=== PATIENT | male | born 1935 | race Caucasian/White ===

== ENCOUNTER 2018-03-22 07:13 | Inpatient (IN) | payer OTHER ==
[2018-03-22 08:14] LABS: ADD MAN DIFF? NO
[2018-03-22] MEDS: SOD CHLORIDE 0.9% 1,000 ML IV (08:15)
[2018-03-22] MEDS: ONDANSETRON 4 MG INJ IV ×2 (08:15→11:23)
[2018-03-22] MEDS: morphine 4 MG/ML VIAL IV (08:15)
[2018-03-22] MEDS: DIPHTH/TET/ACEL PERTUSS (ADULT) 0.5 ML VIAL IM* (08:16)
[2018-03-22 08:17] LABS: WHITE BLOOD COUNT 8.9 10^3/ul (4.8-10.8)
[2018-03-22 08:17] LABS: BASOPHILS % 0.2 % (0.0-2.0); EOSINOPHILS # 0.2 10^3/ul (0.0-0.5); EOSINOPHILS % 1.7 % (0.0-7.0); HEMOGLOBIN 11.7 g/dl (14.0-18.0); LYMPHOCYTES # 0.8 10^3/ul (0.8-2.9); LYMPHOCYTES % 8.4 % (15.0-51.0); MEAN CORPUSCULAR HEMOGLOBIN 31.6 pg (29.0-33.0); MEAN CORPUSCULAR HGB CONC 33.4 g/dl (32.0-37.0); MEAN CORPUSCULAR VOLUME 94.6 fl (82.0-101.0); MEAN PLATELET VOLUME 10.9 fl (7.4-10.4); MONOCYTE # 0.7 10^3/ul (0.3-0.9); MONOCYTES % 7.9 % (0.0-11.0); NEUTROPHIL # 7.2 10^3/ul (1.6-7.5); NEUTROPHILS % 81.1 % (39.0-77.0); PLATELET COUNT 220 10^3/UL (140-415); RED CELL DISTRIBUTION WIDTH 13.8 % (11.5-14.5)
[2018-03-22 08:35] LABS: INR 0.89; PROTIME 12.1 Sec (11.9-14.9); PT RATIO 0.9
[2018-03-22 08:36] LABS: PARTIAL THROMBOPLASTIN TIME 24.7 Sec (25.0-35.0)
[2018-03-22 08:56] LABS: ALBUMIN 3.7 g/dl (3.3-4.9); ALBUMIN/GLOBULIN RATIO 1.12; ALKALINE PHOSPHATASE 72 IU/L (42-121); ANION GAP 12 (8-16); ASPARTATE AMINO TRANSFERASE 13 IU/L (15-46); BILIRUBIN,INDIRECT 0.2 mg/dl (0-1.1); BILIRUBIN,TOTAL 0.2 mg/dl (0.2-1.3); BLOOD UREA NITROGEN 48 mg/dl (7-20); CALCIUM 8.6 mg/dl (8.4-10.2); CARBON DIOXIDE 23 mmol/L (21-31); CHLORIDE 108 mmol/L (97-110); CREATININE 2.85 mg/dl (0.61-1.24); GLUCOSE 114 mg/dl (70-220); POTASSIUM 4.3 mmol/L (3.5-5.1); SODIUM 139 mmol/L (135-144)
[2018-03-22 09:07] LABS: TROPONIN-I < 0.010 ng/ml (0.000-0.120)
[2018-03-22 09:09] LABS: ALANINE AMINOTRANSFERASE < 6 IU/L (13-69)
[2018-03-22] MEDS ORDERED: ONDANSETRON 4 MG INJ IV (10:30)
[2018-03-22] MEDS ORDERED: ACETAMINOPHEN 325 MG TAB PO (10:30)
[2018-03-22] MEDS: morphine 2 MG INJ IV (11:23)
[2018-03-22] MEDS: HYDROCODONE/APAP (5/325) TAB PO ×2 (13:17→21:25)
[2018-03-22] MEDS: FAMOTIDINE 20 MG TAB PO (21:25)
[2018-03-23] MEDS: HYDROCODONE/APAP (5/325) TAB PO ×2 (05:27→19:49)
[2018-03-23 07:25] LABS: ADD MAN DIFF? NO
[2018-03-23 07:39] LABS: WHITE BLOOD COUNT 9.2 10^3/ul (4.8-10.8)
[2018-03-23 07:39] LABS: ABNORMAL IP MESSAGE 1; BASOPHILS % 0.3 % (0.0-2.0); EOSINOPHILS # 0.2 10^3/ul (0.0-0.5); EOSINOPHILS % 2.1 % (0.0-7.0); HEMATOCRIT 33.3 % (42.0-52.0); HEMOGLOBIN 10.9 g/dl (14.0-18.0); LYMPHOCYTES # 0.6 10^3/ul (0.8-2.9); LYMPHOCYTES % 6.4 % (15.0-51.0); MEAN CORPUSCULAR HEMOGLOBIN 30.9 pg (29.0-33.0); MEAN CORPUSCULAR HGB CONC 32.7 g/dl (32.0-37.0); MEAN CORPUSCULAR VOLUME 94.3 fl (82.0-101.0); MEAN PLATELET VOLUME 11.2 fl (7.4-10.4); MONOCYTES % 11.1 % (0.0-11.0); NEUTROPHIL # 7.3 10^3/ul (1.6-7.5); NEUTROPHILS % 79.7 % (39.0-77.0); PLATELET COUNT 194 10^3/UL (140-415); POSITIVE DIFF @See below; RED BLOOD COUNT 3.53 10^6/ul (4.70-6.10); RED CELL DISTRIBUTION WIDTH 14.2 % (11.5-14.5)
[2018-03-23 08:08] LABS: ALANINE AMINOTRANSFERASE 20 IU/L (13-69); ALBUMIN 3.2 g/dl (3.3-4.9); ALBUMIN/GLOBULIN RATIO 1.14; ALKALINE PHOSPHATASE 63 IU/L (42-121); ANION GAP 10 (8-16); ASPARTATE AMINO TRANSFERASE 14 IU/L (15-46); BILIRUBIN,INDIRECT 0.5 mg/dl (0-1.1); BILIRUBIN,TOTAL 0.5 mg/dl (0.2-1.3); BLOOD UREA NITROGEN 37 mg/dl (7-20); CALCIUM 8.1 mg/dl (8.4-10.2); CARBON DIOXIDE 25 mmol/L (21-31); CHLORIDE 109 mmol/L (97-110); CREATININE 2.08 mg/dl (0.61-1.24); GLUCOSE 100 mg/dl (70-220); MAGNESIUM 2.1 mg/dl (1.7-2.5); PHOSPHORUS 3.3 mg/dl (2.5-4.9); POTASSIUM 4.3 mmol/L (3.5-5.1); SODIUM 140 mmol/L (135-144)
[2018-03-23 08:21] LABS: FREE THYROXINE INDEX (Calc) 1.98 ug/ml (0.65-3.89); T3 UPTAKE 40.5 % (23.5-40.5); T4 (THYROXINE) 4.9 ug/dl (5.5-11.0)
[2018-03-23] MEDS: TAMSULOSIN (SR) 0.4 MG CAP PO (08:41)
[2018-03-23] MEDS: FUROSEMIDE 20 MG TAB PO (08:41)
[2018-03-23] MEDS: HEPARIN 5,000 UNIT/0.5 ML VIAL SC ×2 (08:50→20:45)
[2018-03-23] MEDS: AMLODIPINE 5 MG TAB PO (12:00)
[2018-03-23] MEDS: morphine 2 MG INJ IV (15:06)
[2018-03-23] MEDS ORDERED: ALBUTEROL/IPRATROPIUM (NEB) 3 ML AMP HHN (17:00)
[2018-03-23] MEDS: FAMOTIDINE 20 MG TAB PO (20:35)
[2018-03-23] MEDS ORDERED: morphine LIQ (10 MG/5 ML) CUP PO (23:30)
[2018-03-24 07:19] LABS: ADD MAN DIFF? NO
[2018-03-24 07:20] LABS: BASOPHILS % 0.4 % (0.0-2.0); EOSINOPHILS # 0.2 10^3/ul (0.0-0.5); EOSINOPHILS % 2.8 % (0.0-7.0); HEMOGLOBIN 11.1 g/dl (14.0-18.0); IMMATURE GRANS #M 0.02 10^3/ul; IMMATURE GRANS % (M) 0.2 %; LYMPHOCYTES # 0.9 10^3/ul (0.8-2.9); LYMPHOCYTES % 10.4 % (15.0-51.0); MEAN CORPUSCULAR HEMOGLOBIN 30.8 pg (29.0-33.0); MEAN CORPUSCULAR HGB CONC 32.6 g/dl (32.0-37.0); MEAN CORPUSCULAR VOLUME 94.4 fl (82.0-101.0); MEAN PLATELET VOLUME 11.5 fl (7.4-10.4); MONOCYTES % 11.7 % (0.0-11.0); NEUTROPHIL # 6.3 10^3/ul (1.6-7.5); NEUTROPHILS % 74.5 % (39.0-77.0); PLATELET COUNT 189 10^3/UL (140-415); RED CELL DISTRIBUTION WIDTH 14.1 % (11.5-14.5)
[2018-03-24 07:20] LABS: WHITE BLOOD COUNT 8.5 10^3/ul (4.8-10.8)
[2018-03-24 07:35] LABS: HEMOGLOBIN A1C 5.9 % (0-5.9)
[2018-03-24 07:43] LABS: ANION GAP 10 (8-16); BLOOD UREA NITROGEN 35 mg/dl (7-20); CALCIUM 8.2 mg/dl (8.4-10.2); CARBON DIOXIDE 26 mmol/L (21-31); CHLORIDE 107 mmol/L (97-110); CREATININE 2.28 mg/dl (0.61-1.24); GLUCOSE 111 mg/dl (70-220); POTASSIUM 4.1 mmol/L (3.5-5.1); SODIUM 139 mmol/L (135-144)
[2018-03-24 07:47] LABS: CHOL/HDL RATIO 3.4 RATIO; CHOLESTEROL 151 mg/dl (100-200); HDL CHOLESTEROL 44 mg/dl (31-75); LDL CHOLESTEROL,CALCULATED 82 mg/dl; TRIGLYCERIDES 124 mg/dl (0-149)
[2018-03-24 07:47] LABS: PHOSPHORUS 3.4 mg/dl (2.5-4.9)
[2018-03-24] MEDS: TAMSULOSIN (SR) 0.4 MG CAP PO (08:23)
[2018-03-24] MEDS: AMLODIPINE 5 MG TAB PO (08:23)
[2018-03-24] MEDS: FUROSEMIDE 20 MG TAB PO (08:24)
[2018-03-24] MEDS: HEPARIN 5,000 UNIT/0.5 ML VIAL SC ×2 (08:25→22:54)
[2018-03-24] MEDS: HYDROCODONE/APAP (5/325) TAB PO ×3 (11:27→23:39)
[2018-03-24] MEDS: FAMOTIDINE 20 MG TAB PO (22:05)
[2018-03-25] MEDS: HYDROCODONE/APAP (5/325) TAB PO ×2 (05:39→15:56)
[2018-03-25] MEDS: TAMSULOSIN (SR) 0.4 MG CAP PO (08:32)
[2018-03-25] MEDS: AMLODIPINE 5 MG TAB PO (08:33)
[2018-03-25] MEDS: FUROSEMIDE 20 MG TAB PO (08:34)
[2018-03-25] MEDS: HEPARIN 5,000 UNIT/0.5 ML VIAL SC ×2 (08:39→20:41)
[2018-03-25] MEDS: FAMOTIDINE 20 MG TAB PO (20:37)
[2018-03-26] MEDS: HYDROCODONE/APAP (5/325) TAB PO ×3 (01:34→18:02)
[2018-03-26 06:13] LABS: ADD MAN DIFF? NO
[2018-03-26 06:24] LABS: BASOPHILS % 0.2 % (0.0-2.0); EOSINOPHILS # 0.3 10^3/ul (0.0-0.5); EOSINOPHILS % 3.8 % (0.0-7.0); HEMATOCRIT 32.8 % (42.0-52.0); IMMATURE GRANS #M 0.03 10^3/ul; IMMATURE GRANS % (M) 0.3 %; LYMPHOCYTES # 1.2 10^3/ul (0.8-2.9); LYMPHOCYTES % 13.8 % (15.0-51.0); MEAN CORPUSCULAR HEMOGLOBIN 31.6 pg (29.0-33.0); MEAN CORPUSCULAR HGB CONC 33.5 g/dl (32.0-37.0); MEAN CORPUSCULAR VOLUME 94.3 fl (82.0-101.0); MEAN PLATELET VOLUME 11.4 fl (7.4-10.4); MONOCYTE # 1.2 10^3/ul (0.3-0.9); MONOCYTES % 13.6 % (0.0-11.0); NEUTROPHIL # 5.9 10^3/ul (1.6-7.5); NEUTROPHILS % 68.3 % (39.0-77.0); PLATELET COUNT 216 10^3/UL (140-415); RED BLOOD COUNT 3.48 10^6/ul (4.70-6.10); RED CELL DISTRIBUTION WIDTH 13.8 % (11.5-14.5)
[2018-03-26 06:24] LABS: WHITE BLOOD COUNT 8.6 10^3/ul (4.8-10.8)
[2018-03-26 06:41] LABS: PHOSPHORUS 3.8 mg/dl (2.5-4.9)
[2018-03-26 06:43] LABS: ANION GAP 12 (8-16); BLOOD UREA NITROGEN 46 mg/dl (7-20); CALCIUM 7.8 mg/dl (8.4-10.2); CARBON DIOXIDE 30 mmol/L (21-31); CHLORIDE 101 mmol/L (97-110); CREATININE 2.52 mg/dl (0.61-1.24); GLUCOSE 118 mg/dl (70-220); POTASSIUM 3.7 mmol/L (3.5-5.1); SODIUM 139 mmol/L (135-144)
[2018-03-26] MEDS: TAMSULOSIN (SR) 0.4 MG CAP PO (08:47)
[2018-03-26] MEDS: AMLODIPINE 5 MG TAB PO (08:48)
[2018-03-26] MEDS: FUROSEMIDE 20 MG TAB PO (08:48)
[2018-03-26] MEDS: HEPARIN 5,000 UNIT/0.5 ML VIAL SC ×2 (08:52→20:39)
[2018-03-26] MEDS: FAMOTIDINE 20 MG TAB PO (20:33)
[2018-03-27] MEDS: HYDROCODONE/APAP (5/325) TAB PO ×3 (02:03→20:16)
[2018-03-27] MEDS: HEPARIN 5,000 UNIT/0.5 ML VIAL SC (08:11)
[2018-03-27] MEDS: AMLODIPINE 5 MG TAB PO (08:12)
[2018-03-27] MEDS: TAMSULOSIN (SR) 0.4 MG CAP PO (08:12)
[2018-03-27] MEDS: DOCUSATE SODIUM 100 MG CAP PO (08:12)
[2018-03-27] MEDS: FUROSEMIDE 20 MG TAB PO (08:12)
[2018-03-27] MEDS: BISACODYL (EC) 5 MG TAB PO (17:29)
[2018-03-27] MEDS: FAMOTIDINE 20 MG TAB PO (20:17)
[2018-03-28] MEDS: DEXTROSE 5%-0.45% NACL 1,000 ML IV ×2 (00:28→10:37)
[2018-03-28] MEDS ORDERED: ACETAMINOPHEN 1000 MG/100 ML IVPB (07:00)
[2018-03-28] MEDS: morphine 2 MG INJ IV (08:37)
[2018-03-28] MEDS: FUROSEMIDE 20 MG TAB PO (09:00)
[2018-03-28] MEDS: TAMSULOSIN (SR) 0.4 MG CAP PO (09:00)
[2018-03-28] MEDS: AMLODIPINE 5 MG TAB PO (09:00)
[2018-03-28] MEDS: SENNA TAB PO ×2 (11:00→21:10)
[2018-03-28] MEDS ORDERED: ONDANSETRON 4 MG INJ (13:18)
[2018-03-28] MEDS ORDERED: METOCLOPRAMIDE 10 MG INJ (13:18)
[2018-03-28] MEDS ORDERED: FENTAnyl 50 MCG/ML VIAL (13:18)
[2018-03-28] MEDS ORDERED: PROPOFOL 0 ML (13:18)
[2018-03-28] MEDS ORDERED: CEFAZOLIN 1 GM INJ (13:18)
[2018-03-28] MEDS ORDERED: MIDAZOLAM 1 MG/ML 2 ML INJ ×2 (13:18→13:45)
[2018-03-28] MEDS ORDERED: BUPIVACAINE 0.75%/DEXT (SPINAL) 2 ML INJ (13:19)
[2018-03-28] MEDS ORDERED: morphine SULFATE/PF (10 MG/10 ML) INJ (13:19)
[2018-03-28] MEDS ORDERED: ROPIVACAINE 0.5 % 30 ML VIAL (14:06)
[2018-03-28] MEDS ORDERED: EPHEDrine SULFATE 50 MG/5 ML SYG (14:13)
[2018-03-28] MEDS ORDERED: ETOMIDATE 20 MG INJ (14:14)
[2018-03-28] MEDS: POLYMYXIN/BACITRACIN 1L IRRIG IRR (14:52)
[2018-03-28] MEDS ORDERED: ONDANSETRON 4 MG INJ IV (16:00)
[2018-03-28] MEDS ORDERED: HYDROmorphONE 1 MG/5 ML IV SYRINGE IV ×3 (16:00)
[2018-03-28] MEDS ORDERED: NACL 0.9% 3 ML SYG IV (16:30)
[2018-03-28] MEDS: DOCUSATE SODIUM 100 MG CAP PO ×2 (18:43→21:11)
[2018-03-28] MEDS: CEFAZOLIN 1 GM/50 ML (PMX) 50 ML IVPB (18:43)
[2018-03-28] MEDS: MAGNESIUM HYDROXIDE 30ML CUP PO (18:43)
[2018-03-28] MEDS: SOD CHLORIDE 0.9% 1,000 ML IV (18:43)
[2018-03-28] MEDS: FAMOTIDINE 20 MG TAB PO (21:10)
[2018-03-28] MEDS: HYDROCODONE/APAP (5/325) TAB PO (21:11)
[2018-03-29] MEDS: CEFAZOLIN 1 GM/50 ML (PMX) 50 ML IVPB ×2 (00:51→09:41)
[2018-03-29] MEDS: morphine 4 MG/ML VIAL IV ×4 (01:07→16:35)
[2018-03-29] MEDS: SOD CHLORIDE 0.9% 1,000 ML IV ×2 (04:31→22:01)
[2018-03-29 06:52] LABS: ADD MAN DIFF? NO
[2018-03-29 07:07] LABS: WHITE BLOOD COUNT 10.6 10^3/ul (4.8-10.8)
[2018-03-29 07:07] LABS: BASOPHILS % 0.2 % (0.0-2.0); EOSINOPHILS % 0.1 % (0.0-7.0); HEMATOCRIT 31.7 % (42.0-52.0); HEMOGLOBIN 10.6 g/dl (14.0-18.0); LYMPHOCYTES # 0.7 10^3/ul (0.8-2.9); LYMPHOCYTES % 6.7 % (15.0-51.0); MEAN CORPUSCULAR HEMOGLOBIN 31.8 pg (29.0-33.0); MEAN CORPUSCULAR HGB CONC 33.4 g/dl (32.0-37.0); MEAN CORPUSCULAR VOLUME 95.2 fl (82.0-101.0); MEAN PLATELET VOLUME 10.9 fl (7.4-10.4); MONOCYTE # 1.2 10^3/ul (0.3-0.9); MONOCYTES % 11.5 % (0.0-11.0); NEUTROPHIL # 8.6 10^3/ul (1.6-7.5); NEUTROPHILS % 81.1 % (39.0-77.0); PLATELET COUNT 234 10^3/UL (140-415); RED BLOOD COUNT 3.33 10^6/ul (4.70-6.10); RED CELL DISTRIBUTION WIDTH 13.6 % (11.5-14.5)
[2018-03-29 07:41] LABS: ANION GAP 16 (8-16); BLOOD UREA NITROGEN 41 mg/dl (7-20); CALCIUM 7.8 mg/dl (8.4-10.2); CARBON DIOXIDE 26 mmol/L (21-31); CHLORIDE 102 mmol/L (97-110); CREATININE 2.11 mg/dl (0.61-1.24); GLUCOSE 115 mg/dl (70-220); POTASSIUM 4.7 mmol/L (3.5-5.1); SODIUM 139 mmol/L (135-144)
[2018-03-29] MEDS: SENNA TAB PO ×2 (09:41→21:52)
[2018-03-29] MEDS: DOCUSATE SODIUM 100 MG CAP PO ×2 (09:42→21:52)
[2018-03-29] MEDS: HYDROCODONE/APAP (5/325) TAB PO ×2 (09:42→16:35)
[2018-03-29] MEDS: AMLODIPINE 5 MG TAB PO (09:42)
[2018-03-29] MEDS: TAMSULOSIN (SR) 0.4 MG CAP PO ×2 (09:42→21:52)
[2018-03-29] MEDS: FUROSEMIDE 20 MG TAB PO (09:43)
[2018-03-29] MEDS: ENOXAPARIN 30 MG/0.3 ML SYG SC (10:48)
[2018-03-29] MEDS: FAMOTIDINE 20 MG TAB PO (21:52)
[2018-03-30] MEDS: SOD CHLORIDE 0.9% 1,000 ML IV ×2 (05:31→17:15)
[2018-03-30] MEDS: CLOPIDOGREL 75 MG TAB PO (08:33)
[2018-03-30] MEDS: CALCITRIOL 0.25 MCG CAP PO (08:33)
[2018-03-30] MEDS: SENNA TAB PO (08:34)
[2018-03-30] MEDS: DOCUSATE SODIUM 100 MG CAP PO (08:34)
[2018-03-30] MEDS: FUROSEMIDE 20 MG TAB PO (08:34)
[2018-03-30] MEDS: ENOXAPARIN 30 MG/0.3 ML SYG SC (08:40)
[2018-03-30] MEDS: HYDROCODONE/APAP (5/325) TAB PO (09:28)
== END 2018-03-30 18:20 | DRG 481 ==
LOC: E/R 07:13 → TEL 10:02
PROC: 0QS706Z Reposition Left Upper Femur with Intramedullary Internal Fixation Device, Open Approach (ICD-10-PCS; principal; 2018-03-28 13:00)
DX: S72.142A Displaced intertrochanteric fracture of left femur, initial encounter for closed fracture (principal); I13.0 Hypertensive heart and chronic kidney disease with heart failure and stage 1 through stage 4 chronic kidney disease, or unspecified chronic kidney disease; N18.9 Chronic kidney disease, unspecified; I50.9 Heart failure, unspecified; W18.09XA Striking against other object with subsequent fall, initial encounter; Y93.9 Activity, unspecified; Y92.238 Other place in hospital as the place of occurrence of the external cause; J44.9 Chronic obstructive pulmonary disease, unspecified; Z86.73 Personal history of transient ischemic attack (TIA), and cerebral infarction without residual deficits; Z87.891 Personal history of nicotine dependence; I27.20 Pulmonary hypertension, unspecified; N40.0 Benign prostatic hyperplasia without lower urinary tract symptoms; K59.00 Constipation, unspecified; D63.1 Anemia in chronic kidney disease
CPT/HCPCS: 70450; 73090; 73500; 73510; 73530; 80048; 80053; 80061; 82962; 83036; 83735; 84100; 84436; 84443; 84479; 84484; 85025; 85610; 85730; 87086; 90471; 90715; 93005; 93306; 96361; 96374; 96375; 97110; 97163; 97530; 99285-25

== ENCOUNTER 2018-07-21 06:13 | Day surgery (SDC) | payer OTHER ==
[2018-07-21 08:14] LABS: ADD MAN DIFF? NO
[2018-07-21 08:29] LABS: ADD UMIC YES; UR ASCORBIC ACID 20 mg/dL (NEGATIVE); UR BILIRUBIN (Dip) NEGATIVE (NEGATIVE); UR BLOOD (Dip) NEGATIVE (NEGATIVE); UR CLARITY CLEAR (CLEAR); UR COLOR YELLOW (YELLOW); UR GLUCOSE (Dip) NEGATIVE (NEGATIVE); UR KETONES (Dip) NEGATIVE (NEGATIVE); UR LEUKOCYTE ESTERASE (Dip) NEGATIVE Leu/ul (NEGATIVE); UR MUCUS FEW /HPF (NONE SEEN); UR NITRITE (Dip) NEGATIVE (NEGATIVE); UR RBC 2 /HPF (0-5); UR SPECIFIC GRAVITY (Dip) 1.016 (1.003-1.030); UR TOTAL PROTEIN (Dip) 1+ mg/dl (NEGATIVE); UR UROBILINOGEN (Dip) NEGATIVE (NEGATIVE); UR WBC 0 /HPF (0-5)
[2018-07-21 08:34] LABS: WHITE BLOOD COUNT 7.3 10^3/ul (4.8-10.8)
[2018-07-21 08:34] LABS: BASOPHILS % 0.4 % (0.0-2.0); EOSINOPHILS # 0.3 10^3/ul (0.0-0.5); EOSINOPHILS % 3.6 % (0.0-7.0); HEMATOCRIT 32.3 % (42.0-52.0); HEMOGLOBIN 10.5 g/dl (14.0-18.0); LYMPHOCYTES # 1.2 10^3/ul (0.8-2.9); LYMPHOCYTES % 16.1 % (15.0-51.0); MEAN CORPUSCULAR HEMOGLOBIN 30.9 pg (29.0-33.0); MEAN CORPUSCULAR HGB CONC 32.5 g/dl (32.0-37.0); MEAN PLATELET VOLUME 10.3 fl (7.4-10.4); MONOCYTE # 0.8 10^3/ul (0.3-0.9); MONOCYTES % 10.4 % (0.0-11.0); NEUTROPHILS % 69.2 % (39.0-77.0); PLATELET COUNT 322 10^3/UL (140-415); RED CELL DISTRIBUTION WIDTH 13.6 % (11.5-14.5)
[2018-07-21 08:51] LABS: INR 0.93; PARTIAL THROMBOPLASTIN TIME 32.9 Sec (23.0-35.0); PROTIME 12.5 Sec (11.9-14.9)
[2018-07-21 08:52] LABS: ALANINE AMINOTRANSFERASE 8 IU/L (13-69); ALBUMIN 3.5 g/dl (3.3-4.9); ALBUMIN/GLOBULIN RATIO 1.06; ALKALINE PHOSPHATASE 108 IU/L (42-121); ANION GAP 10 (5-13); ASPARTATE AMINO TRANSFERASE 13 IU/L (15-46); BILIRUBIN,INDIRECT 0.3 mg/dl (0-1.1); BILIRUBIN,TOTAL 0.3 mg/dl (0.2-1.3); CALCIUM 8.7 mg/dl (8.4-10.2); CARBON DIOXIDE 26 mmol/L (21-31); CHLORIDE 107 mmol/L (97-110); GLUCOSE 98 mg/dl (70-220); POTASSIUM 4.3 mmol/L (3.5-5.1); SODIUM 143 mmol/L (135-144); TOTAL PROTEIN 6.8 g/dl (6.1-8.1)
[2018-07-21 09:04] LABS: BLOOD UREA NITROGEN 49 mg/dl (7-20)
== END 2018-07-21 09:51 | disposition home or self-care (01) ==
LOC: REC 06:13 → SDS 07:50
DX: S52.022D Displaced fracture of olecranon process without intraarticular extension of left ulna, subsequent encounter for closed fracture with routine healing (principal); X58.XXXD Exposure to other specified factors, subsequent encounter; Z53.9 Procedure and treatment not carried out, unspecified reason; I13.2 Hypertensive heart and chronic kidney disease with heart failure and with stage 5 chronic kidney disease, or end stage renal disease; I50.22 Chronic systolic (congestive) heart failure; N18.5 Chronic kidney disease, stage 5; J44.9 Chronic obstructive pulmonary disease, unspecified; G81.94 Hemiplegia, unspecified affecting left nondominant side; E78.5 Hyperlipidemia, unspecified; E11.42 Type 2 diabetes mellitus with diabetic polyneuropathy
CPT/HCPCS: 71045; 80053; 81001; 85025; 85610; 85730; 93005; 93306

== ENCOUNTER 2018-07-27 05:50 | Inpatient (IN) | payer OTHER ==
[2018-07-27] MEDS ORDERED: VERAPAMIL 5 MG INJ (08:27)
[2018-07-27] MEDS ORDERED: MIDAZOLAM 1 MG/ML 2 ML INJ (08:28)
[2018-07-27] MEDS: POLYMYXIN/BACITRACIN 1L IRRIG (08:59)
[2018-07-27] MEDS ORDERED: ROPIVACAINE 0.5 % 30 ML VIAL (09:52)
[2018-07-27] MEDS ORDERED: LACTATED RINGER'S 1,000 ML IV (09:53)
[2018-07-27] MEDS ORDERED: HYDROCODONE/APAP (5/325) TAB PO (10:00)
[2018-07-27] MEDS ORDERED: NACL 0.9% 3 ML SYG IV (10:00)
[2018-07-27] MEDS ORDERED: CEFAZOLIN 1 GM INJ (10:23)
[2018-07-27] MEDS ORDERED: ONDANSETRON 4 MG INJ (10:23)
[2018-07-27] MEDS ORDERED: ROCURONIUM 50 MG INJ (10:23)
[2018-07-27] MEDS ORDERED: ETOMIDATE 20 MG INJ (10:23)
[2018-07-27] MEDS ORDERED: LIDOCAINE 2% (SDV) 5 ML INJ (10:23)
[2018-07-27] MEDS: CEFAZOLIN 1 GM/50 ML (PMX) 50 ML IVPB ×2 (10:46→18:32)
[2018-07-27] MEDS ORDERED: DIPHENHYDRAMINE 50 MG INJ IV (11:00)
[2018-07-27] MEDS ORDERED: HYDROmorphONE 1 MG/5 ML IV SYRINGE IV ×2 (11:00)
[2018-07-27] MEDS ORDERED: MEPERIDINE 25 MG INJ IV (11:00)
[2018-07-27] MEDS ORDERED: ONDANSETRON 4 MG INJ IV (11:00)
[2018-07-27] MEDS ORDERED: hydrALAzine 20 MG INJ IV (11:00)
[2018-07-27] MEDS ORDERED: FENTAnyl 50 MCG/ML VIAL IV (11:00)
[2018-07-27] MEDS ORDERED: LABETALOL HCL 20MG INJ IV (11:00)
[2018-07-27] MEDS: HYDROCODONE/APAP (5/325) TAB PO (19:06)
[2018-07-27] MEDS: HYDROmorphONE 1 MG/ML SYG IV (21:17)
[2018-07-28] MEDS: CEFAZOLIN 1 GM/50 ML (PMX) 50 ML IVPB (02:26)
[2018-07-28 05:28] LABS: ADD MAN DIFF? NO
[2018-07-28 05:30] LABS: BASOPHILS % 0.2 % (0.0-2.0); EOSINOPHILS % 0.2 % (0.0-7.0); HEMATOCRIT 31.1 % (42.0-52.0); HEMOGLOBIN 10.1 g/dl (14.0-18.0); LYMPHOCYTES # 0.7 10^3/ul (0.8-2.9); MEAN CORPUSCULAR HEMOGLOBIN 30.7 pg (29.0-33.0); MEAN CORPUSCULAR HGB CONC 32.5 g/dl (32.0-37.0); MEAN CORPUSCULAR VOLUME 94.5 fl (82.0-101.0); MEAN PLATELET VOLUME 10.3 fl (7.4-10.4); MONOCYTES % 9.8 % (0.0-11.0); NEUTROPHIL # 8.6 10^3/ul (1.6-7.5); NEUTROPHILS % 82.4 % (39.0-77.0); PLATELET COUNT 292 10^3/UL (140-415); RED BLOOD COUNT 3.29 10^6/ul (4.70-6.10); RED CELL DISTRIBUTION WIDTH 13.5 % (11.5-14.5)
[2018-07-28 05:30] LABS: WHITE BLOOD COUNT 10.4 10^3/ul (4.8-10.8)
[2018-07-28] MEDS: HYDROmorphONE 1 MG/ML SYG IV ×2 (10:15→18:25)
[2018-07-28] MEDS ORDERED: HYDROCODONE/APAP (10/325) TAB PO (23:30)
[2018-07-28 23:50] LABS: ADD MAN DIFF? NO
[2018-07-28 23:52] LABS: BASOPHILS % 0.3 % (0.0-2.0); EOSINOPHILS # 0.3 10^3/ul (0.0-0.5); EOSINOPHILS % 2.9 % (0.0-7.0); HEMATOCRIT 30.7 % (42.0-52.0); LYMPHOCYTES # 1.3 10^3/ul (0.8-2.9); LYMPHOCYTES % 12.8 % (15.0-51.0); MEAN CORPUSCULAR HEMOGLOBIN 31.5 pg (29.0-33.0); MEAN CORPUSCULAR HGB CONC 32.6 g/dl (32.0-37.0); MEAN CORPUSCULAR VOLUME 96.8 fl (82.0-101.0); MONOCYTE # 1.3 10^3/ul (0.3-0.9); MONOCYTES % 12.9 % (0.0-11.0); NEUTROPHIL # 7.3 10^3/ul (1.6-7.5); NEUTROPHILS % 70.7 % (39.0-77.0); PLATELET COUNT 276 10^3/UL (140-415); RED BLOOD COUNT 3.17 10^6/ul (4.70-6.10); RED CELL DISTRIBUTION WIDTH 13.4 % (11.5-14.5)
[2018-07-28 23:52] LABS: WHITE BLOOD COUNT 10.3 10^3/ul (4.8-10.8)
[2018-07-29 00:08] LABS: ANION GAP 4 (5-13); BLOOD UREA NITROGEN 31 mg/dl (7-20); CALCIUM 8.4 mg/dl (8.4-10.2); CARBON DIOXIDE 30 mmol/L (21-31); CHLORIDE 102 mmol/L (97-110); CREATININE 1.92 mg/dl (0.61-1.24); GLUCOSE 105 mg/dl (70-220); POTASSIUM 4.8 mmol/L (3.5-5.1); SODIUM 136 mmol/L (135-144)
[2018-07-29] MEDS: CALCITRIOL 0.25 MCG CAP PO (08:58)
[2018-07-29] MEDS: FUROSEMIDE 40 MG TAB PO (08:59)
[2018-07-29] MEDS: AMLODIPINE 5 MG TAB PO (08:59)
[2018-07-29] MEDS: CALCIUM/VITAMIN D (500/200) TAB PO (08:59)
[2018-07-29] MEDS: FERROUS SULFATE (EC) 325 MG TAB PO (08:59)
[2018-07-29] MEDS: CLOPIDOGREL 75 MG TAB PO (08:59)
[2018-07-29] MEDS ORDERED: LOSARTAN 25 MG TAB PO (09:00)
[2018-07-29] MEDS ORDERED: TAMSULOSIN (SR) 0.4 MG CAP PO (21:00)
== END 2018-07-29 11:40 | disposition home or self-care (01) | DRG 511 ==
LOC: REC 05:50 → MS1 11:55
PROVIDERS: Orthopaedic Surgery
PROC: 0PSL04Z Reposition Left Ulna with Internal Fixation Device, Open Approach (ICD-10-PCS; principal; 2018-07-27 08:00)
DX: S52.022A Displaced fracture of olecranon process without intraarticular extension of left ulna, initial encounter for closed fracture (principal); I50.30 Unspecified diastolic (congestive) heart failure; N18.9 Chronic kidney disease, unspecified; J44.9 Chronic obstructive pulmonary disease, unspecified; Z86.73 Personal history of transient ischemic attack (TIA), and cerebral infarction without residual deficits; W18.30XA Fall on same level, unspecified, initial encounter
CPT/HCPCS: 73070; 73080-LT; 80048; 85025